=== PATIENT | female | born 1955 | race Caucasian/White ===

== ENCOUNTER 2023-10-14 20:46 | Emergency (ER) | payer MEDICARE, SELFPAY ==
[2023-10-14 20:53] VITALS: BP 142/99; PULSE 61; RESP 16; TEMP 36.2
--- NOTE | 2023-10-14 21:45 | RT.EKG_ITS ---
APPROVED REPORT Exam: Resting ECG Reason for Exam: weakness Patient Location: E HR:59 bpm ECG Measurements Heart Rate 59 AXIS OK 160 P 87 QRSd 107 QRS -9 QT 441 T 48 QTc 438 Conclusion Sinus bradycardia...rate< 60 Probable left atrial enlargement...P >50mS, <-0.10mV V1 Low voltage, precordial leads...precordial leads <1.0mV I have reviewed and interpreted ECG and agree with software generated interpretation.
[2023-10-14 22:03] LABS: Abs Immature Grans 0.03 10^3/uL (0.0-0.06); Absolute Basophil Count 0.05 10^3/uL (0.0-0.2); Absolute Eosinophil Count 0.08 10^3/uL (0.0-0.7); Absolute Lymphocyte Count 1.83 10^3/uL (1.2-3.4); Absolute Monocyte Count 0.43 10^3/uL (0.1-0.8); Absolute Neutrophil Count 6.11 10^3/uL (1.2-6.7); Basophils % 0.6 %; Eosinophils % 0.9 %; HCT 37.6 % (36.0-46.0); HGB 13.1 g/dL (11.2-15.7); Immature Grans % 0.4 %; Lymphocytes % 21.5 %; MCH 29.8 pg (27.0-33.0); MCHC 34.8 % (32.0-36.0); MCV 86 fL (80-95); MPV 10.6 fL (8.0-11.0); Neutrophils % 71.6 %; Platelet Count 265 10^3/uL (130-400); RDW 12.4 % (11.7-14.6); RDW-SD 38.8 fL; WBC 8.53 10^3/uL (4.4-10.8)
[2023-10-14] MEDS: Lactated Ringers 1,000 ML 1000 ML IV (22:06)
[2023-10-14] MEDS: Ondansetron 4 MG/2 ML VIAL IVP (22:07)
[2023-10-14 22:26] LABS: ALT 30 U/L (14-59); AST 24 U/L (15-37); Albumin 4.1 g/dL (3.4-5.0); Alkaline Phosphatase 66 U/L (46-116); Anion Gap 8.1 mmol/L (3-11); BUN 8 mg/dL (7-18); CO2 26.9 mmol/L (21.0-32.0); CREATININE 0.6 mg/dL (0.55-1.02); Calcium 9.3 mg/dL (8.5-10.1); Chloride 98 mmol/L (98-107); Glucose 114 mg/dL (74-106); Lipase 45 U/L (16-77); Magnesium 1.9 mg/dL (1.8-2.4); Potassium 3.5 mmol/L (3.5-5.1); Sodium 133 mmol/L (136-145); Total Protein 7.4 g/dL (6.4-8.2); Troponin I < 50 ng/L (< or =60)
[2023-10-14 22:59] VITALS: BP 138/75; PULSE 80; RESP 16; O2SAT 98
--- NOTE | 2023-10-14 23:27 | ED.GENADUL_ITS ---
Discharge Plan Disposition Patient Disposition: Home Condition: Good Discharge Details Chief Complaint: Abd Prob Clinical Impression: Dehydration Primary Care Provider: Unknown,Unknown ED Provider: Virgilio Aponte Home Meds and New Rx's Prescriptions: No Action clonazepam 0.5 MG tablet 0.5 - 3 mg PO DAILY paroxetine HCl 40 MG tablet 60 mg PO .QHS lamotrigine [Lamictal] 100 MG tablet 200 mg PO DAILY bupropion HCl 100 mg tablet 150 mg PO ONCE Rx Instructions: orally once; Trintellix 20 mg tablet 20 mg PO DAILY mirtazapine 15 mg tablet 15 mg PO DAILY Discharge Instructions Instructions: Dehydration, Adult ED Additional Instructions: At this time your laboratory workup is returned very reassuring. You were dehydrated but have now been rehydrated. Please drink plenty of fluids including electrolytes. If you notice any worsening of your symptoms, or any new symptoms such as vomiting, diarrhea, fever, chills, shortness of breath, chest pain, numbness, weakness, or fainting , please return immediately to the emergency department for reevaluation. Please follow up with your primary care provider as soon as possible for reassessment and reevaluation. As always, it was a pleasure participating in your medical care today. HPI General Date/Time Provider Initiated Documentation: 10/14/23 20:51 . HPI Narrative: 68-year-old female with past medical history of depression and anxiety presents today for evaluation of mild weakness. Patient states that over the last few weeks she has been very hot both at work and in her apartment, she is concerned she is overexerted herself. Over the last few days she has had a few episodes of diarrhea which she attributes to anxiety. She feels weak and did have a single episode of nausea and vomiting earlier today, but no longer has any belly pain, tenderness or other complaints. She denies headache chest pain shortness of breath or abdominal pain. She denies any fever or chills. No other complaints whatsoever. She denies drinking from any streams, recent foreign travel or antibiotic use. Related Data Home Medications Medication Instructions Recorded Confirmed clonazepam 0.5 mg tablet 0.5 - 3 mg PO DAILY 03/15/14 10/14/23 lamotrigine 100 mg tablet 200 mg PO DAILY 03/15/14 10/14/23 (Lamictal) paroxetine HCl 40 mg tablet 60 mg PO .QHS 03/15/14 10/14/23 bupropion HCl 100 mg tablet 150 mg PO ONCE 10/14/23 10/14/23 mirtazapine 15 mg tablet 15 mg PO DAILY 10/14/23 10/14/23 vortioxetine 20 mg tablet 20 mg PO DAILY 10/14/23 10/14/23 (Trintellix) Allergies Allergy/AdvReac Type Severity Reaction Status Date / Time Echinacea Allergy Severe Anaphylaxsi Unverified 10/14/23 21:04 s General Stated Complaint: Abd Prob STEPHANIE: 3 Review of Systems All systems reviewed & are unremarkable except as noted in HPI and below Exam Narrative Exam Narrative: 1.Const: Well-nourished, Well-developed, appearing stated age 2.Eyes: PERRL, no conjunctival injection, and symmetrical lids. 3.ENT: Atraumatic external nose and ears. Notably dry MM. Neck: Symmetric, trachea midline, No thyromegaly. 4.CVS: +S1/S2, No murmurs or gallops. Peripheral pulses 2+ and equal in all extremities. Brisk capillary refill in all extremities. 5.RESP: Unlabored respiratory effort. Clear to auscultation bilaterally. No wheezes rales or rhonchi 6.GI: Soft, Nontender/Nondistended, No hepatosplenomegaly. No guarding or rebound. 7.MSK: Normocephalic/Atraumatic, Extremities w/o deformity or ttp No cyanosis or clubbing, Normal movement of all extremities 8.Skin: Warm, Dry. No rashes or lesions. 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 Sensation grossly intact, no focal neurologic deficits. 10.Psych: (AAO) x3. Appropriate mood and affect Course Vital Signs Vital signs: Vital Signs Temperature 36.2 C L 10/14/23 20:53 Pulse 61 10/14/23 20:53 Respiratory Rate 16 10/14/23 20:53 Blood Pressure 142/99 H 10/14/23 20:53 Temperature 36.2 C L 10/14/23 20:53 Pulse 80 10/14/23 22:59 Respiratory Rate 16 10/14/23 22:59 Blood Pressure 138/75 10/14/23 22:59 Blood Pressure Mean 96 10/14/23 22:59 Blood Pressure Position Supine 10/14/23 22:59 Pulse Oximetry 98 10/14/23 22:59 Pain Level 0 10/14/23 22:59 Lab/Test Results Lab/Test Results: Laboratory Tests Range/Units 10/14/23 21:48 WBC (4.4-10.8) 10^3/uL 8.53 RBC (3.93-5.22) 10^6/uL 4.40 Hgb (11.2-15.7) g/dL 13.1 Hct (36.0-46.0) % 37.6 MCV (80-95) fL 86 MCH (27.0-33.0) pg 29.8 MCHC (32.0-36.0) % 34.8 RDW (11.7-14.6) % 12.4 Plt Count (130-400) 10^3/uL 265 MPV (8.0-11.0) fL 10.6 Immature Gran % % 0.4 Neutrophils % % 71.6 Lymphocytes % % 21.5 Monocytes % % 5.0 Eosinophils % % 0.9 Basophils % % 0.6 Nucleated RBC % (0.0-0.3) % 0.0 Absolute Neutrophils (1.2-6.7) 10^3/uL 6.11 Absolute Lymphocytes (1.2-3.4) 10^3/uL 1.83 Absolute Monocytes (0.1-0.8) 10^3/uL 0.43 Absolute Eosinophils (0.0-0.7) 10^3/uL 0.08 Absolute Basophils (0.0-0.2) 10^3/uL 0.05 Sodium (136-145) mmol/L 133 L Potassium (3.5-5.1) mmol/L 3.5 Chloride (98-107) mmol/L 98 Carbon Dioxide (21.0-32.0) mmol/L 26.9 Anion Gap (3-11) mmol/L 8.1 BUN (7-18) mg/dL 8 Creatinine (0.55-1.02) mg/dL 0.6 Est GFR (CKD-EPI 2020) (mL/min/1.73m2) 97.10 Glucose (74-106) mg/dL 114 H Calcium (8.5-10.1) mg/dL 9.3 Magnesium (1.8-2.4) mg/dL 1.9 Total Bilirubin (0.2-1.0) mg/dL 0.50 AST (15-37) U/L 24 ALT (14-59) U/L 30 Alkaline Phosphatase (46-116) U/L 66 Troponin I (< or =60) ng/L < 50 Total Protein (6.4-8.2) g/dL 7.4 Albumin (3.4-5.0) g/dL 4.1 Lipase (16-77) U/L 45 TSH (0.36-3.74) uIU/mL 1.00 Medical Decision Making 68-year-old female with past medical history of depression and anxiety presents today for evaluation of mild weakness. Patient states that over the last few weeks she has been very hot both at work and in her apartment, she is concerned she is overexerted herself. Over the last few days she has had a few episodes of diarrhea which she attributes to anxiety. She feels weak and did have a single episode of nausea and vomiting earlier today, but no longer has any belly pain, tenderness or other complaints. She denies headache chest pain shortness of breath or abdominal pain. She denies any fever or chills. No other complaints whatsoever. She denies drinking from any streams, recent foreign travel or antibiotic use. Exam demonstrates well-appearing female, dry mucous membranes, no other significant abnormality otherwise. No abdominal tenderness. Differential includes dehydration electrolyte abnormality thyroid dysfunction, less likely cardiac etiology. EKG benign. Will evaluate for concerning etiologies, rehydrate, monitor closely and reassess. 11:30 PM Laboratory workup shows no white count bandemia or left shift. Electrolytes stable. Glucose normal. Thyroid function and lipase normal. Patient looks notably stable. Hemodynamics demonstrate good stability with no significant abnormality. Patient feels much better on reassessment. She feels well and feels comfortable going home. Troponin normal, EKG benign. Patient stable for discharge. With no evidence of life-threatening etiology, stroke, electrolyte abnormality or cardiac etiology do feel the patient is safe for discharge. Discussed red flags for which return. No evidence of heatstroke or other abnormalities. I have extensively reviewed the treatment plan and discharge instructions with the patient. I have addressed all patient concerns at this time. The patient was made aware of what symptoms to monitor for that would warrant a return to the emergency department. Discussed the plan with the patient, they demonstrate verbal understanding and agreement with our assessment and plan at this time. The documentation in this chart was dictated using [employer] dictation software. Please excuse any dictation errors. Quality:SDOH Health Related Social Needs: No Data to Display PFSH All Active Problems (Updated 10/15/23 @ 00:02 by Virgilio Aponte DO) Dehydration (Acute) Social History Smoking/Tobacco Use Status: Former Tobacco Use Smoking risk assessment performed?: Yes Alcohol Intake: never Drug use: Never Substance use type: does not use Housing: apartment Do you feel safe at home: Yes Do you feel safe in your relationship?: Yes
[2023-10-15 01:03] LABS: Bilirubin Negative (Negative); Blood Negative (Negative); Clarity Clear (Clear); Glucose Negative (Negative); Ketones Negative (Negative); Leukocyte Esterase Negative (Negative); Nitrite Negative (Negative); Urobilinogen 0.2 mg/dL (Up to 0.2)
== END 2023-10-15 06:38 | disposition home or self-care (01) ==
PROVIDERS: Emergency Provider Student in an Organized Health Care Education/Training Program
DX: E86.0 Dehydration (principal); F41.9 Anxiety disorder, unspecified; F32.A Depression, unspecified; Z87.891 Personal history of nicotine dependence
CPT/HCPCS: 36415; 80053; 83690; 93005; 96360; 96361; 99284; 81003; 83735; 84443; 84484; 85025; 93010; 99283; J2405